=== PATIENT | male | born 1935 | race Caucasian/White ===

== ENCOUNTER 2016-09-17 14:54 | Inpatient (IN) | payer OTHER ==
[~2016-09-17] VITALS: Ht 182.9 cm; Wt 98.7 kg
--- NOTE | ~2016-09-17 | D ---
[facility] [place] [address] DISCHARGE SUMMARY Name: SREE SAUNDERS JR Room #: 304-P [facility] IN M.R.#: [id number] Admission: 09/17/16 Attend Phys: Lg Scott Discharge: 09/18/16 Date of : 33 Report #: [id number] THIS REPORT FOR: //name// CC: Darryl No MD DATE OF SERVICE: 09/18/2016 DATE OF ADMISSION: 09/17/2016 DATE OF DISCHARGE: 09/18/2016 PRIMARY CARE PHYSICIAN: Pradeep No M.D. DISCHARGE DIAGNOSES: 1. 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 2. Chronic lymphocytic lymphoma. 3. Chronic atrial fibrillation. 4. Chronic diastolic heart failure. 5. Type 2 diabetes. 6. Hypertension. 7. Peripheral vascular disease. 8. History of coronary artery disease with stents. 9. Question gastrointestinal bleed. CONSULTS: Dr. Prince. PROCEDURES: None. HOSPITAL COURSE: The patient is an 81-year-old male with a history of CLL diagnosed in [address] Prince who underwent chemotherapy with complete remission, presented to the ER secondary to evaluation for anemia. For details of the hospital course, please see Flaca Schuster's dictation on September 17. He apparently was initially admitted to [facility] [place] on September 15 and required total of 6 units of packed red blood cells. Apparently, he had some bloody stools as well, but did not have a GI evaluation there as his guaiacs were negative once he arrived to the hospital. He was symptomatic with his anemia as well. Workup here showed that his hemoglobin was 7.4 and dropped down to 6.2 prior to discharge. Additional workup included haptoglobin that was less than 10 and LDH of 478. There is also reported positive direct Anna result. Dr. Prince saw him in consult and recommended that he be transferred to for chemotherapy. He recommended Cytoxan and rituximab as treatment medications. He also was given some Solu-Medrol to ensure that he did have obstructive jaundice from hemolysis related to his hematoma. Otherwise, he was stable and [facility] [address] [place] [address] DISCHARGE SUMMARY Name: SREE SAUNDERS Room #: 304-P [facility] IN .R.#: [id number] Admission: 09/17/16 Attend Phys: Lg Scott Discharge: 09/18/16 Date of : 34 Report #: [id number] discharged and had no other complaints. DISCHARGE DISPOSITION: To . DISCHARGE PHYSICAL EXAMINATION: GENERAL: He is awake, alert, answering questions appropriately, in no acute respiratory distress. HEENT: Normocephalic, atraumatic. Pupils equal. NECK: Supple. CARDIOVASCULAR: Regular rate and rhythm. No murmurs. LUNGS: Clear to auscultation bilaterally. No crackles or wheeze. ABDOMEN: Soft, no distention or tenderness. EXTREMITIES: No edema. NEUROLOGIC: Nonfocal. DISCHARGE MEDICATIONS: Allopurinol 300 daily, atorvastatin 20 daily, Coreg 25 b.i.d., vitamin B12 1000 mcg daily, Colace 100 mg at bedtime, Lasix Sunday, Sunday, Sunday and 20 daily and then 40 Sunday, Sunday and Sunday, Neurontin 300 daily, Apriso 0.375 grams daily, metformin XR 500 b.i.d., nitroglycerin p.r.n. spironolactone 12.5 daily, Coumadin 2 mg daily, Zantac 300 mg daily. DIET: Diabetic diet. ACTIVITY: As tolerated. FOLLOWUP: With primary care a week following discharge. Follow up with Oncology as instructed and to seek immediate medical attention if symptoms worsen or recur or if he has any other significant medical concerns. Discharge planning took 32 minutes. By: [id number] Ashlie Rodriguez MD /nt
--- NOTE | ~2016-09-17 | H ---
[facility] [place] [address] HISTORY AND PHYSICAL Name: SREE SAUNDERS JR Room #: 304-P [facility] IN M.R.#: [id number] Admission: 09/17/16 Attend Phys: Lg Scott Discharge: 09/18/16 Date of : 34 Report #: [id number] THIS REPORT FOR: //name// CC: Darryl No ATTENDING PHYSICIAN: Dr. Mas. PRIMARY CARE PHYSICIAN: Dr. No. CHIEF COMPLAINT: Evaluation for anemia. HISTORY OF PRESENT ILLNESS: The patient is an 81-year-old male who has a history of CLL, this was diagnosed in 2014 and underwent chemotherapy at that time. He follows with Dr. Prince, he has never in complete remission according to notes from Dr. Prince. He was admitted initially at [facility] [place] on 09/15/2016 for acute on chronic anemia. He has required a total of 6 units of blood, initially when he presented there he said that he has been having some bright red blood per rectum, but he did not have any further bleeding once he arrived and his hemoccult was negative, he says he did have some dizziness and shortness of breath prior to getting blood transfusion and despite getting blood, his hemoglobin has continued to drop. Initially, his hemoglobin on admit there was 5.5 then it went up to 7.9 and back down to 6.5 without any active bleeding and then again he went up to 8.1 after his last units of blood. There was concern that he was developing autoimmune hemolytic anemia. So, he was sent to [facility] for further evaluation. He denies any further symptoms of dizziness or shortness of breath. He is resting comfortably. He denies any abdominal pain. He last had a normal bowel movement, which was brown earlier this morning. He denies any, his last colonoscopy was about 5 years he has had good normal and he did have an EGD at some point within the last year which he says he thinks is normal as well. PAST MEDICAL HISTORY: CLL, diastolic heart failure, chronic atrial fibrillation, diabetes, coronary artery disease, hypertension, iron deficiency anemia, thrombocytopenia, ulcerative colitis, hyperlipidemia, GERD, degenerative joint disease, peripheral vascular disease. PAST SURGICAL HISTORY: Coronary stent x 3, aortic valve replacement with "cow valve", cataract repair, left total knee replacement, and bilateral lower extremity stents. ALLERGIES: LISINOPRIL CAUSED COUGH. HOME MEDICATIONS: Coumadin 3 mg daily, this was held on 09/15/2016, Lipitor 80 mg at bedtime, carvedilol 25 mg b.i.d., spironolactone 12.5 mg daily, Neurontin 300 mg daily and Lasix 40 mg 3 times a week with 20 mg on an every other day, [address] [address] HISTORY AND PHYSICAL Name: SREE SAUNDERS Room #: 304-P [facility] IN M.R.#: [id number] Admission: 09/17/16 Attend Phys: Lg Scott Discharge: 09/18/16 Date of : 34 Report #: [id number] Colace 100 mg at bedtime p.r.n. day, Zantac 300 mg at bedtime, mesalamine 0.375 grams daily, metformin 1000 mg b.i.d. and vitamin B12 1000 mcg daily and allopurinol 300 mg daily. SOCIAL HISTORY: The patient is an ex-smoker, having quit in 1992 after smoking up to 3-4 packs per day for over 40 years. He lives at home with his . He used to drink beer daily but quit that 2 to 3 years ago and he normally ambulates with a cane. FAMILY HISTORY: Significant for cancer in both his parents. REVIEW OF SYSTEMS: Twelve point review of systems was reviewed with the patient, otherwise negative unless stated in the HPI. PHYSICAL EXAMINATION: GENERAL: The patient is an alert male in no acute distress. VITAL SIGNS: Temperature is 36.6, heart rate 80, respirations 18, blood pressure is 141/62, oxygen 96% on room air. HEENT: PERRLA. Sclerae is nonicteric. Oral mucosa is pink and moist. NECK: Supple, no JVD noted. CARDIOVASCULAR: Heart rate is irregular, but no murmurs, rubs or gallops. RESPIRATORY: Breath sounds are clear bilaterally. No wheezing or rhonchi. Breathing is nonlabored. ABDOMEN: Soft, round, nontender, nondistended with positive bowel sounds. VASCULAR: No edema noted. Pedal pulses are 2+. NEUROLOGIC: The patient is alert and oriented x 3. Speech is clear. He is moving all extremities equally and following commands. No focal neuro deficits noted. LABORATORY DATA AND DIAGNOSTICS: His CBC on arrival showed WBC is , hemoglobin 7.4 and platelets of 34 and prior labs at [place] showed a sodium of 139, potassium 4.3, BUN 36, creatinine 0.8, glucose 156. INR 1.2. D-dimer was positive. ASSESSMENT AND PLAN: 1. Acute on chronic anemia. This is probable autoimmune hemolytic anemia as he did have a positive direct Anna test, hematology is consulted. We will check LDH and haptoglobin and reticulocyte counts and follow hemoglobin levels. Transfuse as needed. 2. Chronic lymphocytic leukemia. The patient is being followed by Dr. Arevalo and has chronic associated leukocytosis. 3. Chronic atrial fibrillation. He is currently rate controlled. His Coumadin has been on hold because of possible gastrointestinal bleeding. 4. Chronic diastolic heart failure. No signs of an exacerbation. Continue to monitor fluid status. 5. Diabetes type 2. Blood sugar is stable. Continue metformin as at home and [facility] [address] [place] [address] HISTORY AND PHYSICAL Name: SREE SAUNDERS JR Room #: 304-P [facility] IN [facility].#: [id number] Admission: 09/17/16 Attend Phys: Lg Scott Discharge: 09/18/16 Date of : 34 Report #: [id number] add sliding scale insulin. Check blood sugars a.c. and at bedtime. 6. . Blood pressure has been stable. Resume home meds and monitor. 7. Thrombocytopenia, likely related to chronic lymphocytic leukemia. No further active bleeding and follow labs. 8. Peripheral vascular disease, Coumadin has been on hold. 9. History of coronary artery disease with prior stents. The patient is denying any chest pain. Continue to monitor. 10. Deep venous thrombosis prophylaxis, place sequential compression devices. We will continue to follow the patient closely throughout the hospitalization and make changes based on clinical status. <ELECTRONICALLY SIGNED> By: ANNMARIE Najera 09/19/16 [id number] ANNMARIE Najera /geoffrey
--- NOTE | ~2016-09-17 | HC ---
[facility] [place] [address] CONSULTATION Name: SREE SAUNDERS JR Room #: 304-P [facility] IN M.R.#: [id number] Admission: 09/17/16 Attend Phys: Lg Scott Discharge: 09/18/16 Date of : 34 Report #: [id number] THIS REPORT FOR: //name// CC: Phi No MD REASON FOR CONSULTATION: CLL and hemolysis. HISTORY OF PRESENT ILLNESS: The patient has a history of CLL and recently seen in the office last week. At that time, he and had had some bright red blood per rectum, but has also been on Coumadin. His hemoglobin was down around in the 6.5 range. About a month early, he was iron deficient, but given IV iron. We had hoped that if blood counts would improve and not be completely due to his CLL. The patient was evidently admitted down at [facility] and apparently had 6 units of blood over the weekend and was concerned for hemolysis. Total bilirubin was 4.3 this morning, LDH is 478, absolute retic count 20, hemoglobin 6.2, platelets of 36. The patient at this time denies fevers, chills, nausea, vomiting. No arm or leg swelling. Does in retrospect feel his urine is a little bit darker since maybe about last Sunday or . Also his skin has been a little bit more yellowish lately. Also I am not sure how much of that is anemia versus little bit of jaundice. The patient does not have any chest pain. His bowels are moving acceptably. He has not had anymore blood for a couple of days. Past history is notable for the CLL diagnosed in September 2012. Received bendamustine, rituximab in May 2015. He had two cycles, was quite tired and he has been recently slightly progressive and there have been plans, flow cytogenetics have been sent off to consider idelalisib or venetoclax. Also has a history of hypogammaglobulinemia with a recent IgG of 3055. Also has a history of transcatheter aortic valve replacement in 2016, has a peripheral atrial disease, history of tobacco use, history of chronic diastolic heart failure, history of type 2 diabetes, ulcerative colitis history, mitral valve regurgitation, hyperlipidemia, permanent atrial fibrillation, peripheral vascular disease, hypertension, chronic kidney disease and reflux disease. SOCIAL HISTORY: He is [facility], currently a nonsmoker, nondrinker. PHYSICAL EXAMINATION: GENERAL: The patient appears his stated age. He is alert and oriented x 3. VITAL SIGNS: Blood pressure is 137/52, pulse is 98, respirations 30, O2 sat 92. Afebrile, 97.6. HEENT: Face symmetrical. LUNGS: Clear. HEART: Regular rate. ABDOMEN: Slightly obese. No definite hepatomegaly. No definite masses. EXTREMITIES: Without clubbing, cyanosis or [facility] [address] [place] [address] CONSULTATION Name: SREE SAUNDERS JR Room #: 304-P [facility] IN M.R.#: [id number] Admission: 09/17/16 Attend Phys: Lg Scott Discharge: 09/18/16 Date of : 34 Report #: [id number] edema. He does have some slight left lateral axillary adenopathy, none on the right. ASSESSMENT AND PLAN: 1. Anemia, probably hemolysis component, but also production problem. I am afraid that we would not have the resources here to give him chemotherapy, maybe hemolyzing. I have talked with Dr. Phi Infante at [facility]. He has accepted the patient in transfer. Ultrasound pending. To make sure he does not have obstructive jaundice, we will also give a gram of Solu-Medrol. If he is hemolyzing related to his lymphoma, would consider Cytoxan and rituximab, but would of course defer to Dr. Infante. 2. Elevated bilirubin. We will check ultrasound to make sure it is not obstructive jaundice. 3. Atrial fibrillation. Current rate controlled well, holding anticoagulation. 4. Recent gastrointestinal bleeding, none recently since off the Coumadin. 5. Diabetes, metformin. Sliding scale insulin. 6. History of gout and also tumor lysis prophylaxis, continues allopurinol. 7. Cardiac issues, continues carvedilol. 8. Acid reflux, pantoprazole. 9. Mild neuropathy, gabapentin. 10. Hyperlipidemia, atorvastatin. We will follow with you. <ELECTRONICALLY SIGNED> By: Lg Prince MD 09/19/16 [id number] Lg Prince MD /nt
[2016-09-17 16:25] VITALS: BP 141/62
[2016-09-17] MEDS ORDERED: ALLOPURINOL 30300 M2 PO (17:24)
[2016-09-17] MEDS ORDERED: LIPITOR 20 MG T20 M1 PO (17:25)
[2016-09-17] MEDS ORDERED: COREG25 MG PO (17:25)
[2016-09-17] MEDS ORDERED: VITAMIN B-12500 MCG PO (17:26)
[2016-09-17] MEDS ORDERED: COLACE100 MG PO (17:26)
[2016-09-17] MEDS ORDERED: LASIX 20 MG TAB20 MG PO (17:27)
[2016-09-17] MEDS ORDERED: LASIX 40 MG TAB40 M2 PO (17:28)
[2016-09-17] MEDS ORDERED: NEURONTIN 300300 M1 PO (17:29)
[2016-09-17] MEDS ORDERED: APRISO0.375 GM PO (17:35)
[2016-09-17] MEDS ORDERED: GLUCOPHAGE XR500 MG PO (17:35)
[2016-09-17] MEDS ORDERED: ZANTAC 150MG T150 MG PO (17:36)
[2016-09-17] MEDS ORDERED: NITROGLYCERIN0.4 MG SUBLING (17:36)
[2016-09-17] MEDS ORDERED: SPIRONOLACTONE25 M1 PO (17:36)
[2016-09-17] MEDS ORDERED: COUMADIN 3 MG TA3 M1 PO (17:43)
[2016-09-17] MEDS ORDERED: VITAMIN B-121000 MC2 SL (17:44)
[2016-09-17 20:00] VITALS: BP 151/59
[2016-09-17 20:27] LABS: HEMATOCRIT 21.7 % (42.0-52.0); HEMOGLOBIN 7.4 gm/dL (14.0-18.0); MCH 33.4 pg (26.0-34.0); MCHC 33.8 g/dL (28.0-37.0); MCV 98.6 fL (80.0-100.0); RBC 2.21 mil/uL (4.50-6.00); RDW 19.2 % (10.5-14.5)
[2016-09-17 20:47] LABS: WBC 70.5 thou/uL (4.0-11.0)
[2016-09-18 04:00] VITALS: BP 152/51
[2016-09-18 06:21] LABS: MCH 34.1 pg (26.0-34.0); MCHC 33.8 g/dL (28.0-37.0); MCV 100.9 fL (80.0-100.0); RBC 1.81 mil/uL (4.50-6.00); RDW 19.3 % (10.5-14.5)
[2016-09-18 06:26] LABS: INR 1.3
[2016-09-18 06:34] LABS: ALBUMIN 3.1 g/dL (3.4-5.0); CALCIUM 8.4 mg/dL (8.5-10.1); CREATININE 0.9 mg/dL (0.6-1.3); POTASSIUM 4.2 mmol/L (3.5-5.1); TOTAL BILIRUBIN 4.3 mg/dL (<0.1-1.0); TOTAL PROTEIN 5.3 g/dL (6.4-8.2)
[2016-09-18 06:46] LABS: HEMATOCRIT 18.3 % (42.0-52.0)
[2016-09-18 06:47] LABS: ABSOLUTE RETIC COUNT 0.021 10^6/uL; HEMOGLOBIN 6.2 gm/dL (14.0-18.0); OBSERVED RETIC COUNT 1.14 % (0.6-2.6)
[2016-09-18 07:29] VITALS: BP 137/52
== END 2016-09-18 15:27 | disposition other institution (70) | DRG 809 ==
LOC: 3N 14:54
PROVIDERS: Internal Medicine Hematology & Oncology; Nurse Practitioner Acute Care
DX: D59.1 Other autoimmune hemolytic anemias (principal); C91.10 Chronic lymphocytic leukemia of B-cell type not having achieved remission; I13.0 Hypertensive heart and chronic kidney disease with heart failure and stage 1 through stage 4 chronic kidney disease, or unspecified chronic kidney disease; I50.32 Chronic diastolic (congestive) heart failure; D69.6 Thrombocytopenia, unspecified; E11.51 Type 2 diabetes mellitus with diabetic peripheral angiopathy without gangrene; E11.22 Type 2 diabetes mellitus with diabetic chronic kidney disease; N18.9 Chronic kidney disease, unspecified; E78.5 Hyperlipidemia, unspecified; K21.9 Gastro-esophageal reflux disease without esophagitis; M10.9 Gout, unspecified; D50.9 Iron deficiency anemia, unspecified; E11.40 Type 2 diabetes mellitus with diabetic neuropathy, unspecified; I48.2 Chronic atrial fibrillation; Z96.652 Presence of left artificial knee joint; I25.10 Atherosclerotic heart disease of native coronary artery without angina pectoris; M19.90 Unspecified osteoarthritis, unspecified site; Z95.5 Presence of coronary angioplasty implant and graft; Z95.2 Presence of prosthetic heart valve; Z92.21 Personal history of antineoplastic chemotherapy; Z87.891 Personal history of nicotine dependence; Z79.4 Long term (current) use of insulin; Z79.899 Other long term (current) drug therapy; Z88.8 Allergy status to other drugs, medicaments and biological substances; Z80.8 Family history of malignant neoplasm of other organs or systems
CPT/HCPCS: 10795